=== PATIENT | female | born 1955 | race Caucasian/White ===

== ENCOUNTER → 2017-06-08 | Outpatient (CLI) | payer BC ==
[~2017-06-08] MED LIST: GADOBUTROL 10 ML VIAL IVP ONE
== END ==
LOC: FIMAGING 14:43
PROVIDERS: ATTEND Physical Medicine & Rehabilitation
DX: M65.88 Other synovitis and tenosynovitis, other site (principal); M65.872 Other synovitis and tenosynovitis, left ankle and foot; M67.472 Ganglion, left ankle and foot
CPT/HCPCS: A9585